=== PATIENT | male | born 1980 | race Caucasian/White ===

== ENCOUNTER 2016-09-21 16:09 | Emergency (ER) | payer SELFPAY ==
--- NOTE | 2016-09-21 16:20 | PDOC ---
History of Present Illness - General History Source: Patient Exam Limitations: No Limitations <Jack Ambriz - Last Filed: 09/21/16 16:55> <Iris Miner - Last Filed: 09/21/16 19:43> - General Stated Complaint: PASSED OUT Time Seen by Provider: 09/21/16 16:16 - History of Present Illness Initial Comments: 09/21/16 16:42 The patient is a 36 year old male with no significant past medical history, who presents to the ED with a near syncopal episode. Patient states he was smoking weed and was two blocks away from his house when he saw all black and felt like fainting. He denies chest pain, SOB, fever, chills, nausea, vomiting, diarrhea. He denies dysuria, frequency, hematuria. He denies loss of consciousness. He denies trauma. He denies urinary or bowel incontinence. Patient states he has smoked the same strand of weed before with no complications. (Jack Ambriz) Past History <Jack Ambriz - Last Filed: 09/21/16 16:55> - Psycho/Social/Smoking Cessation Hx Anxiety: No Suicidal Ideation: No Smoking Status: Yes Smoking History: Former smoker Number of Cigarettes Smoked Daily: 10 <Iris Miner - Last Filed: 09/21/16 19:43> - Past Medical History Allergies/Adverse Reactions: Allergies Allergy/AdvReac Type Severity Reaction Status Date / Time Shellfish Allergy Intermediate Hives Verified 03/28/11 12:32 Home Medications: Ambulatory Orders NK [No Known Home Medication] 09/21/16 Review of Systems - Review of Systems Able to Perform ROS?: Yes <Jack Ambriz - Last Filed: 09/21/16 16:55> <Iris Miner - Last Filed: 09/21/16 19:43> - Review of Systems Comments:: 09/21/16 16:42 CONSTITUTIONAL: Absent: fever, chills, diaphoresis, generalized weakness, malaise, loss of appetite HEENT: Absent: rhinorrhea, nasal congestion, throat pain, throat swelling, difficulty swallowing, mouth swelling, ear pain, eye pain, visual Changes CARDIOVASCULAR: Absent: chest pain, syncope, palpitations, irregular heart rate, lightheadedness , peripheral edema RESPIRATORY: Absent: cough, shortness of breath, dyspnea with exertion, orthopnea, wheezing, stridor, hemoptysis GASTROINTESTINAL: Absent: abdominal pain, abdominal distension, nausea, vomiting, diarrhea, constipation, melena, hematochezia GENITOURINARY: Absent: dysuria, frequency, urgency, hesitancy, hematuria, flank pain, genital pain MUSCULOSKELETAL: Absent: myalgia, arthralgia, joint swelling SKIN: Absent: rash, itching, pallor HEMATOLOGIC/IMMUNOLOGIC: Absent: easy bleeding, easy bruising, lymphadenopathy, frequent infections ENDOCRINE: Absent: unexplained weight gain, unexplained weight loss, heat intolerance, cold intolerance NEUROLOGIC: Present: "unsteady gait, near syncopal episode." Absent: headache, focal weakness or paresthesias, dizziness, seizure, bladder or bowel incontinence PSYCHIATRIC: Absent: anxiety, depression, suicidal or homicidal ideation, hallucinations. (Jack Ambriz) *Physical Exam <Jack Ambriz - Last Filed: 09/21/16 16:55> <Iris Miner - Last Filed: 09/21/16 19:43> - Vital Signs Last Vital Signs Temp Pulse Resp BP Pulse Ox 97.2 F L 57 L 18 127/71 100 09/21/16 18:00 09/21/16 18:00 09/21/16 18:00 09/21/16 18:00 09/21/16 18:00 - Physical Exam Comments: 09/21/16 16:47 GENERAL: Well developed, well nourished. Awake and alert. No acute distress. HEENT: Dry mucous membranes. Normocephalic, atraumatic. PERRLA, EOMI. No conjunctival pallor. Sclera are non-icteric. Oropharynx is clear. NECK: Supple. Full ROM. No JVD. Carotid pulses 2+ and symmetric, without bruits. No thyromegaly. No lymphadenopathy. CARDIOVASCULAR: Regular rate and rhythm. No murmurs, rubs, or gallops. Distal pulses are 2+ and symmetric. PULMONARY: No evidence of respiratory distress. Lungs clear to auscultation bilaterally. No wheezing, rales or rhonchi. ABDOMINAL: Soft. Non-tender. Non-distended. No rebound or guarding. No organomegaly. Normoactive bowel sounds. MUSCULOSKELETAL Normal range of motion at all joints. No bony deformities or tenderness. No CVA tenderness. EXTREMITIES: No cyanosis. No clubbing. No edema. No calf tenderness. SKIN: Warm and dry. Normal capillary refill. No rashes. No jaundice. NEUROLOGICAL: Alert, awake, appropriate. Cranial nerves 2-12 intact. No deficits to light touch and temperature in face, upper extremities and lower extremities. No motor deficits in the in face, upper extremities and lower extremities. Normoreflexic in the upper and lower extremities. Normal speech. Toes are down-going bilaterally. Gait is normal without ataxia. PSYCHIATRIC: Cooperative. Good eye contact. Appropriate mood and affect. (Jack Ambriz) Heart Score/ECG Review <Jack Ambriz - Last Filed: 09/21/16 16:55> <Iris Miner - Last Filed: 09/21/16 19:43> - ECG Intrepretation Comment:: 09/21/16 16:42 Normal Sinus Rhythm, 68 bpm. (Jack Ambriz) ED Treatment Course - LABORATORY CBC & Chemistry Diagram: 09/21/16 16:43 09/21/16 16:43 <Jack Ambriz - Last Filed: 09/21/16 16:55> - LABORATORY CBC & Chemistry Diagram: 09/21/16 16:43 09/21/16 16:43 <Iris Miner - Last Filed: 09/21/16 19:43> - ADDITIONAL ORDERS Additional order review: Laboratory Results 09/21/16 09/21/16 09/21/16 18:07 16:43 16:43 Sodium Potassium Chloride Carbon Dioxide Anion Gap BUN Creatinine Creat Clearance w eGFR POC Glucometer Random Glucose Calcium Total Bilirubin AST ALT Alkaline Phosphatase Creatine Kinase 174 Creatine Kinase Index < 0.6 CK-MB (CK-2) < 1.000 CK-MB (CK-2) Rel Index Cancelled Troponin I < 0.02 Total Protein Albumin Opiates Screen Negative Methadone Screen Negative Barbiturate Screen Negative Phencyclidine Screen Negative Ur Amphetamines Screen Negative MDMA (Ecstasy) Screen Negative Benzodiazepines Screen Negative Cocaine Screen Positive U Marijuana (THC) Screen Positive 09/21/16 09/21/16 16:43 16:19 Sodium 140 Potassium 4.3 Chloride 107 Carbon Dioxide 26 Anion Gap 7 L BUN 10 Creatinine 1.0 Creat Clearance w eGFR > 60 POC Glucometer [id number] Random Glucose 87 Calcium 9.2 Total Bilirubin 0.6 AST 27 ALT 25 Alkaline Phosphatase 78 Creatine Kinase Creatine Kinase Index CK-MB (CK-2) CK-MB (CK-2) Rel Index Troponin I Total Protein 7.2 Albumin 3.8 Opiates Screen Methadone Screen Barbiturate Screen Phencyclidine Screen Ur Amphetamines Screen MDMA (Ecstasy) Screen Benzodiazepines Screen Cocaine Screen U Marijuana (THC) Screen 09/21/16 09/21/16 16:43 16:19 RBC 4.78 MCV 96.0 MCHC 33.8 RDW 15.2 MPV 7.9 Neutrophils % 53.9 Lymphocytes % 36.1 Monocytes % 8.6 Eosinophils % 1.0 Basophils % 0.4 POC Glucometer 109.32730 - Medications Given in the ED: ED Medications Discontinued Medications Generic Name Dose Route Start Last Admin Trade Name Freq PRN Reason Stop Dose Admin Sodium Chloride 1,000 mls @ 1,000 mls/hr 09/21/16 16:34 09/21/16 16:52 Normal Saline - IV 09/21/16 17:33 1,000 mls/hr ASDIR STA Administration Medical Decision Making <Jack Ambriz - Last Filed: 09/21/16 16:55> <Iris Miner - Last Filed: 09/21/16 19:43> - Medical Decision Making 09/21/16 19:38 6-year-old male smoked, used marijuana today and then developed some to walk to his car that was 2 blocks away. He says he is walking. He felt like he couldn' t coordinate his legs. He did not pass out. He did not fall. He called the police and the police called an ambulance for him. He states that he smokes marijuana and passed no had this problem. He did not have any symptoms upon arrival. Past medical history denied No medication allergies Social history he smokes marijuana twice daily NIH stroke scale 0 09/21/16 19:42 labs wnl pt felt much better by time he arrived in ER and he wanted to leave (Iris Miner) *DC/Admit/Observation/Transfer <Jack Ambriz - Last Filed: 09/21/16 16:55> <Iris Miner - Last Filed: 09/21/16 19:43> Diagnosis at time of Disposition: Drug effect - Discharge Dispostion Disposition: HOME Condition at time of disposition: Stable - Patient Instructions Additional Instructions: please avoid cocaine please return if you develop shortness of breath,chest pain,numbness or tingling of extremities,slurred speech or confusion Print Language: OCCITAN - Attestations Scribe Attestion: 09/21/16 16:48 Documentation prepared by Jack Ambriz, acting as faculty i on call medical assistant for Iris Miner MD. (Jack Ambriz)
[2016-09-21 16:26] VITALS: BMI 28.1
[2016-09-21] MEDS ORDERED: SODIUM CHLORIDE 1,000 ML IV STA (16:34)
[2016-09-21 16:53] LABS: BASOPHIL 0.4 % (0-2.0); MCH 32.4 pg (25.7-33.7); MCHC 33.8 g/dl (32.0-35.9); MEAN PLT VOLUME 7.9 fl (7.5-11.1); NEUTROPHILS 53.9 % (42.8-82.8); PLATELET COUNT 264 K/MM3 (134-434); RDW 15.2 % (11.9-15.9)
[2016-09-21 17:26] LABS: ALBUMIN 3.8 g/dl (3.4-5.0); ALK PHOS 78 U/L (45-117); ANION GAP 7 (8-16); BILIRUBIN,TOTAL 0.6 mg/dL (0.2-1.0); CALCIUM 9.2 mg/dL (8.5-10.1); CO2 26 mmol/L (21-32); GLUCOSE,RANDOM 87 mg/dL (74-106); SGPT/ALT 25 U/L (12-78); TOT PROT 7.2 g/dl (6.4-8.2)
[2016-09-21 17:29] LABS: TROPONIN I < 0.02 ng/ml (0.00-0.05)
[2016-09-21 17:31] LABS: SGOT/AST 27 U/L (15-37)
[2016-09-21 18:03] VITALS: BP 127/71; PULSE 57; TEMP 97.2
[2016-09-21 18:28] LABS: URINE MARIJUANA THC POSITIVE ng/ml (CUTOFF=50)
--- NOTE | 2016-09-22 12:38 | EKG ---
Test Reason : Blood Pressure : / mmHG Vent. Rate : 068 BPM Atrial Rate : 068 BPM P-R Int : 126 ms QRS Dur : 106 ms QT Int : 418 ms P-R-T Axes : 054 059 053 degrees QTc Int : 444 ms NORMAL SINUS RHYTHM NORMAL ECG NO PREVIOUS ECGS AVAILABLE Confirmed by BRITTANY CEBALLOS MD ([id number]) on 09/22/2016 12:37:52 PM Referred By: Confirmed By:BRITTANY CEBALLOS MD
== END 2016-09-21 18:47 | disposition home or self-care (01) ==
LOC: JER 16:09
PROC: 3E0337Z Introduction of Electrolytic and Water Balance Substance into Peripheral Vein, Percutaneous Approach (ICD-10-PCS; principal; 2016-09-21)
DX: T40.7X1A Poisoning by cannabis (derivatives), accidental (unintentional), initial encounter (principal); Y92.480 Sidewalk as the place of occurrence of the external cause
CPT/HCPCS: 36415; 80053; 80307; 82550; 82553; 84484; 85025; 93005; 93010; 99283-25

== ENCOUNTER 2020-04-20 12:39 | Emergency (ER) | payer SELFPAY | END 2020-04-20 13:50 | disposition home or self-care (01) | LOC: JVIRT 12:39 | DX: Z20.822 Contact with and (suspected) exposure to COVID-19 (principal) | CPT/HCPCS: C9803; G2012-GT; U0003 ==

== ENCOUNTER 2022-02-24 09:20 | Emergency (ER) | payer SELFPAY ==
[2022-02-24 09:41] VITALS: BP 128/81; PULSE 64; RESP 20; TEMP 97.8; BMI 27.4
== END 2022-02-24 11:39 | disposition home or self-care (01) ==
LOC: FER 09:20
DX: N43.3 Hydrocele, unspecified (principal)
CPT/HCPCS: 36415; 76870-TC; 81003; 87086; 87491; 87591; 99284-25